=== PATIENT | female | born 1950 | race Caucasian/White ===

== ENCOUNTER → 2016-07-26 | Outpatient (CLI) | payer MEDICARE, OTHER ==
--- NOTE | 2016-07-27 08:40 | MR ---
EXAMINATION: MRI of the left shoulder HISTORY: Fall COMPARISON: Radiographs dated 08/11/2012 TECHNIQUE: Multiplanar and multisequence images obtained of the left shoulder without contrast. FINDINGS: There is a type II acromion. Mild acromioclavicular osteoarthritic changes are noted. Smal l amount of subacromial and subdeltoid fluid is noted. There is a tiny full-thickness tear of the chinchilla praspinatus tendon anteriorly at the footplate. The infraspinatus and teres minor tendons appear int act. The long head biceps tendon is present within the bicipital groove with intact overlying subsca pularis tendon. There is mild edema within the anterior glenoid. Mild articular cartilage thinning i s noted within the glenohumeral joint. Inferior glenohumeral ligament appears indistinct however lik valdez intact. There is a trace joint effusion. IMPRESSION: 1. Tiny full-thickness tear of the supraspinatus tendon at the footplate. 2. Mild bone marrow edema within the anterior glenoid. 3. Acromioclavicular and glenohumeral osteoarthritic changes. 4. Small joint effusion.
== END ==
LOC: MW.MRI 10:50
PROVIDERS: ATTEND Family Medicine
DX: M25.512 Pain in left shoulder (principal); M75.122 Complete rotator cuff tear or rupture of left shoulder, not specified as traumatic; M19.012 Primary osteoarthritis, left shoulder; M25.412 Effusion, left shoulder; W19.XXXA Unspecified fall, initial encounter
CPT/HCPCS: 73221-26-LT; 73221-LT

== ENCOUNTER 2018-03-22 10:38 | Observation (INO) | payer MEDICARE, OTHER ==
[2018-03-22] MEDS ORDERED: Sodium Chloride 0.9% 10 ML Syringe FLUSH PRN (10:52)
[2018-03-22] MEDS ORDERED: Ondansetron 4 MG/2 ML SDV IVPUSH ONE (10:52)
[2018-03-22] MEDS ORDERED: Sodium Chloride 0.9% 1,000 ML IV ONE (10:52)
[2018-03-22] MEDS ORDERED: Sodium Chloride 0.9% 2.5 ML Syringe FLUSH PRN (10:52)
--- NOTE | 2018-03-22 11:00 | EDM.PDOC ---
ED HPI GENERAL MEDICAL PROBLEM - General Chief Complaint: Gastrointestinal Problem Stated Complaint: VOMITING, NOT FEELING WELL Time Seen by Provider: 03/22/18 10:38 Source of Information: Reports: Patient History Limitations: Reports: No Limitations - History of Present Illness INITIAL COMMENTS - FREE TEXT/NARRATIVE: History of present illness: []Patient has breast cancer in both breasts started chemotherapy on March 13. She started having vomiting and diarrhea on March 18 approximately 4-5 episodes of emesis per day and greater than 10 episodes of diarrhea per day. She states this morning her stool was black and tarry which is new, so she called her physician who told her to come to the ER right away. She complains of abdominal pain in her right upper quadrant. Patient denies any fevers, chills , cough or chest pain. Patient denies taking any Pepto-Bismol Review of systems: As per history of present illness and below otherwise all systems reviewed and negative. Past medical history: As per history of present illness and as reviewed below otherwise noncontributory. Surgical history: As per history of present illness and as reviewed below otherwise noncontributory. Social history: No reported history of drug or alcohol abuse. Family history: As per history of present illness and as reviewed below otherwise noncontributory. Physical exam: General: Well developed, well nourished in NAD HEENT: Atraumatic, normocephalic, pupils reactive, negative for conjunctival pallor or scleral icterus, mucous membranes moist, throat clear, neck supple, nontender, trachea midline. Lungs: Clear to auscultation, breath sounds equal bilaterally, chest nontender. Heart: S1S2, regular, negative for clicks, rubs, or JVD. Abdomen: NABS, Soft, nondistended, tender in right upper quadrant with voluntary rebound, no guarding. Negative for masses or hepatosplenomegaly. Negative for costovertebral tenderness. Pelvis: Stable nontender. Genitourinary: Deferred. Rectal: guaiac positive Extremities: Atraumatic, negative for cords or calf pain. Neurovascular unremarkable. Neuro: Awake, alert, oriented. Cranial nerves II through XII unremarkable. Cerebellum unremarkable. Motor and sensory unremarkable throughout. Exam nonfocal. Skin:warm and dry Diagnostics: Chemistry, CBC, type and screen, lipase Therapeutics: IV fluids, Zofran ED Course: Improved with hydration. 12:41-consulted Dr. Fernando from [facility] 13:00-consulted [facility] Dr. Peter, hospitalist he recommended admitting patient here for observation to repeat chemistries after hydration and if for any ongoing anoxic stools.- Impression: Dehydration, vomiting diarrhea, breast cancer, melanotic stool Prescriptions: None Plan: Admit for observation, hydration Definitive disposition and diagnosis as appropriate pending reevaluation and review of above. RUQ Pain Score (Numeric/FACES): 2 - Related Data Allergies Allergy/AdvReac Type Severity Reaction Status Date / Time No Known Allergies Allergy Verified 03/22/18 10:52 Home Meds: Home Meds Albuterol Sulfate [Proair Hfa] 1 puff INH ASDIRECTED 03/22/18 [History] Fluticasone/Salmeterol [Advair 100-50] 1 puff INH DAILY 03/22/18 [History] Pantoprazole [ProTONIX] 40 mg PO DAILY 03/22/18 [History] Polyethylene Glycol 3350 [MiraLAX] 1 cap PO ACBREAKFAST PRN 03/22/18 [History] Ranitidine HCl [Ranitidine] 300 mg PO ASDIRECTED PRN 03/22/18 [History] Past Medical History HEENT History: Reports: Impaired Vision, Other (See Below) Other HEENT History: wears glasses Cardiovascular History: Reports: None Respiratory History: Reports: Asthma Gastrointestinal History: Reports: None Genitourinary History: Reports: None HOSPITAL CLINIC ASSISTANT History: Reports: None Musculoskeletal History: Reports: None Neurological History: Reports: None Psychiatric History: Reports: None Endocrine/Metabolic History: Reports: None Hematologic History: Reports: None Immunologic History: Reports: None Oncologic (Cancer) History: Reports: Breast Dermatologic History: Reports: None - Past Surgical History Head Surgeries/Procedures: Reports: None HEENT Surgical History: Reports: None Cardiovascular Surgical History: Reports: None Respiratory Surgical History: Reports: None GI Surgical History: Reports: None Female Surgical History: Reports: None Endocrine Surgical History: Reports: None Neurological Surgical History: Reports: None Musculoskeletal Surgical History: Reports: None Oncologic Surgical History: Reports: None Dermatological Surgical History: Reports: None Social & Family History - Family History Family Medical History: Noncontributory - Tobacco Use Smoking Status *Q: Former Smoker Used Tobacco, but Quit: Yes Month/Year Tobacco Last Used: 40 years - Caffeine Use Caffeine Use: Reports: Coffee - Recreational Drug Use Recreational Drug Use: No ED ROS GENERAL - Review of Systems Review Of Systems: ROS reveals no pertinent complaints other than HPI. ED EXAM, GI/ABD - Physical Exam Exam: See Below (See history of present illness) Course - Vital Signs Last Recorded V/S: Last Vital Signs Temp 97.7 F 03/22/18 15:51 Pulse 94 03/22/18 15:51 Resp 16 03/22/18 15:51 BP 121/62 03/22/18 15:51 Pulse Ox 98 03/22/18 15:51 - Orders/Labs/Meds Orders: Active Orders 24 hr Category Date Time Status CULTURE BLOOD [BC] Stat Lab 03/22/18 11:21 Received CULTURE BLOOD [BC] Stat Lab 03/22/18 11:38 Received Sodium Chloride 0.9% [Saline Flush] Med 03/22/18 10:52 Active 10 ml FLUSH ASDIRECTED PRN Sodium Chloride 0.9% [Saline Flush] Med 03/22/18 10:52 Active 2.5 ml FLUSH ASDIRECTED PRN Blood Culture x2 Reflex Set [OM.PC] Stat Oth 03/22/18 11:55 Ordered Saline Lock Insert [OM.PC] Stat Oth 03/22/18 10:51 Ordered Medication Orders Calcium Carbonate/Glycine (Tums) 500 mg PO Q2HR PRN PRN Reason: Indigestion Sodium Chloride (Normal Saline) 1,000 mls @ 125 mls/hr IV ASDIRECTED LANI Sodium Chloride (Saline Flush) 10 ml FLUSH ASDIRECTED PRN PRN Reason: Keep Vein Open Last Admin: 03/22/18 11:25 Dose: 10 ml Sodium Chloride (Saline Flush) 2.5 ml FLUSH ASDIRECTED PRN PRN Reason: Keep Vein Open Last Admin: 03/22/18 11:26 Dose: 2.5 ml Labs: Laboratory Tests 03/22/18 03/22/18 03/22/18 Range/Units 11:27 11:27 11:27 WBC 36.61 H (4.0-11.0) K/uL RBC 4.74 (4.30-5.90) M/uL Hgb 13.1 (12.0-16.0) g/dL Hct 39.9 (36.0-46.0) % MCV 84.2 (80.0-98.0) fL MCH 27.6 (27.0-32.0) pg MCHC 32.8 (31.0-37.0) g/dL RDW Std Deviation 47.6 (28.0-62.0) fl RDW Coeff of Jermaine 16 H (11.0-15.0) % Plt Count 228 (150-400) K/uL MPV 10.60 (7.40-12.00) fL Add Manual Diff YES Neutrophils % (Manual) 86 H (48.0-80.0) % Band Neutrophils % 4 % Lymphocytes % (Manual) 6 L (16.0-40.0) % Monocytes % (Manual) 4 (0.0-15.0) % Nucleated RBC % 0.0 /100WBC Absolute Seg Neuts 31.5 H (1.4-5.7) Band Neutrophils # 1.5 Lymphocytes # (Manual) 2.2 (0.6-2.4) Monocytes # (Manual) 1.5 H (0.0-0.8) Nucleated RBCs # 0 K/uL Sodium 137 (136-145) mmol/L Potassium 3.7 (3.5-5.1) mmol/L Chloride 101 (98-107) mmol/L Carbon Dioxide 24.2 (21.0-32.0) mmol/L BUN 26 H (7.0-18.0) mg/dL Creatinine 1.5 H (0.6-1.0) mg/dL Est Cr Clr Drug Dosing 30.57 mL/min Estimated GFR (MDRD) 34.4 ml/min Glucose 114 H (74-106) mg/dL Calcium 9.7 (8.5-10.1) mg/dL Total Bilirubin 0.3 (0.2-1.0) mg/dL AST 18 (15-37) IU/L ALT 34 (14-63) IU/L Alkaline Phosphatase 167 H (46-116) U/L Total Protein 7.3 (6.4-8.2) g/dL Albumin 3.5 (3.4-5.0) g/dL Globulin 3.8 (2.6-4.0) g/dL Albumin/Globulin Ratio 0.9 (0.9-1.6) Lipase 112 (73-393) U/L Blood Type A NEGATIVE Antibody Screen NEGATIVE Meds: Medications Generic Name Dose Route Start Last Admin Trade Name Freq PRN Reason Stop Dose Admin Calcium Carbonate/Glycine 500 mg 03/22/18 15:51 Tums PO Q2HR PRN Indigestion Sodium Chloride 1,000 mls @ 125 mls/hr 03/22/18 16:15 Normal Saline IV ASDIRECTED LANI Sodium Chloride 10 ml 03/22/18 10:52 03/22/18 11:25 Saline Flush FLUSH 10 ml ASDIRECTED PRN Administration Keep Vein Open Sodium Chloride 2.5 ml 03/22/18 10:52 03/22/18 11:26 Saline Flush FLUSH 2.5 ml ASDIRECTED PRN Administration Keep Vein Open Discontinued Medications Generic Name Dose Route Start Last Admin Trade Name Freq PRN Reason Stop Dose Admin Sodium Chloride 1,000 mls @ 999 mls/hr 03/22/18 10:52 03/22/18 11:26 Normal Saline IV 03/22/18 11:52 999 mls/hr .Bolus ONE Administration Ondansetron HCl 4 mg 03/22/18 10:52 03/22/18 11:25 Zofran IVPUSH 03/22/18 10:53 4 mg ONETIME ONE Administration Departure - Departure Time of Disposition: 13:45 Disposition: Refer to Observation Condition: Good Clinical Impression: Dehydration, Melanotic stools - Discharge Information *PRESCRIPTION DRUG MONITORING PROGRAM REVIEWED*: No *COPY OF PRESCRIPTION DRUG MONITORING REPORT IN PATIENT MOR: No - My Orders Last 24 Hours: My Active Orders 03/22/18 10:51 Saline Lock Insert [OM.PC] Stat 03/22/18 10:52 Sodium Chloride 0.9% [Saline Flush] 10 ml FLUSH ASDIRECTED PRN Sodium Chloride 0.9% [Saline Flush] 2.5 ml FLUSH ASDIRECTED PRN 03/22/18 11:21 CULTURE BLOOD [BC] Stat 03/22/18 11:38 CULTURE BLOOD [BC] Stat 03/22/18 11:55 Blood Culture x2 Reflex Set [OM.PC] Stat - Assessment/Plan Last 24 Hours: My Active Orders 03/22/18 10:51 Saline Lock Insert [OM.PC] Stat 03/22/18 10:52 Sodium Chloride 0.9% [Saline Flush] 10 ml FLUSH ASDIRECTED PRN Sodium Chloride 0.9% [Saline Flush] 2.5 ml FLUSH ASDIRECTED PRN 03/22/18 11:21 CULTURE BLOOD [BC] Stat 03/22/18 11:38 CULTURE BLOOD [BC] Stat 03/22/18 11:55 Blood Culture x2 Reflex Set [OM.PC] Stat
[2018-03-22] MEDS ORDERED: Calcium Carbonate 500 MG Tab.Chew PO PRN (15:51)
[2018-03-22] MEDS: Sodium Chloride 0.9% 1,000 ML IV SCH (16:32)
[2018-03-22] MEDS ORDERED: Albuterol 6.7 GM Inhaler INH SCH (17:45)
[2018-03-22] MEDS ORDERED: Ondansetron 4 MG/2 ML SDV IVPUSH PRN (17:57)
--- NOTE | 2018-03-22 18:05 | PCM.HP ---
H&P History of Present Illness - General Date of Service: 03/22/18 Admit Problem/Dx: Admission Diagnosis/Problem Admission Diagnosis/Problem Dehydration - History of Present Illness Initial Comments - Free Text/Narative: 67 yo female with pmh of breast cancer recently had first infusion of chemotherapy with dexamethason with plans on bilateral mastectomy following chemotherapy. She presents with four day history of gas pains and diarrhiea. Today she reported her stools were darker. She denies any fevers. She does report a history of stomach ulcers. RUQ Pain Score (Numeric/FACES): 2 - Related Data Allergies/Adverse Reactions: Allergies Allergy/AdvReac Type Severity Reaction Status Date / Time No Known Allergies Allergy Verified 03/22/18 10:52 Home Medications: Home Meds Albuterol Sulfate [Proair Hfa] 1 puff INH ASDIRECTED 03/22/18 [History] Fluticasone/Salmeterol [Advair 100-50] 1 puff INH DAILY 03/22/18 [History] Pantoprazole [ProTONIX] 40 mg PO DAILY 03/22/18 [History] Polyethylene Glycol 3350 [MiraLAX] 1 cap PO ACBREAKFAST PRN 03/22/18 [History] Ranitidine HCl [Ranitidine] 300 mg PO ASDIRECTED PRN 03/22/18 [History] Past Medical History HEENT History: Reports: Impaired Vision, Other (See Below) Other HEENT History: wears glasses Cardiovascular History: Reports: None Respiratory History: Reports: Asthma Gastrointestinal History: Reports: None Genitourinary History: Reports: None PURCHASING INTERN History: Reports: None Musculoskeletal History: Reports: None Neurological History: Reports: None Psychiatric History: Reports: None Endocrine/Metabolic History: Reports: None Hematologic History: Reports: None Immunologic History: Reports: None Oncologic (Cancer) History: Reports: Breast Other Oncologic History: Mar 13, 2018 first chemo taken. Dermatologic History: Reports: None - Infectious Disease History Infectious Disease History: Reports: Chicken Pox, Measles - Past Surgical History Head Surgeries/Procedures: Reports: None HEENT Surgical History: Reports: None Cardiovascular Surgical History: Reports: None Respiratory Surgical History: Reports: None GI Surgical History: Reports: None Female Surgical History: Reports: None Endocrine Surgical History: Reports: None Neurological Surgical History: Reports: None Musculoskeletal Surgical History: Reports: None Oncologic Surgical History: Reports: None Dermatological Surgical History: Reports: None Social & Family History - Family History Family Medical History: Noncontributory - Tobacco Use Smoking Status *Q: Former Smoker Used Tobacco, but Quit: Yes Month/Year Tobacco Last Used: 40 years Second Hand Smoke Exposure: No - Caffeine Use Caffeine Use: Reports: Coffee - Recreational Drug Use Recreational Drug Use: No H&P Review of Systems - Review of Systems: Review Of Systems: ROS reveals no pertinent complaints other than HPI. Exam - Exam Exam: See Below - Vital Signs Vital Signs: Last Vital Signs Temp 36.5 C 03/22/18 15:51 Pulse 94 03/22/18 15:51 Resp 16 03/22/18 15:51 BP 121/62 03/22/18 15:51 Pulse Ox 98 03/22/18 15:51 Weight: 78.67 kg - Exam General: Alert, Oriented Neck: Supple, Trachea Midline Lungs: Clear to Auscultation, Normal Respiratory Effort Cardiovascular: Regular Rate, Regular Rhythm GI/Abdominal Exam: Soft, Non-Tender Extremities: Non-Tender, No Pedal Edema Skin: Warm, Dry, Intact Neurological: Cranial Nerves Intact - Patient Data Lab Results Last 24 hrs: Laboratory Results - last 24 hr 03/22/18 03/22/18 03/22/18 Range/Units 11:27 11:27 11:27 WBC 36.61 H (4.0-11.0) K/uL RBC 4.74 (4.30-5.90) M/uL Hgb 13.1 (12.0-16.0) g/dL Hct 39.9 (36.0-46.0) % MCV 84.2 (80.0-98.0) fL MCH 27.6 (27.0-32.0) pg MCHC 32.8 (31.0-37.0) g/dL RDW Std Deviation 47.6 (28.0-62.0) fl RDW Coeff of Jermaine 16 H (11.0-15.0) % Plt Count 228 (150-400) K/uL MPV 10.60 (7.40-12.00) fL Add Manual Diff YES Neutrophils % (Manual) 86 H (48.0-80.0) % Band Neutrophils % 4 % Lymphocytes % (Manual) 6 L (16.0-40.0) % Monocytes % (Manual) 4 (0.0-15.0) % Nucleated RBC % 0.0 /100WBC Absolute Seg Neuts 31.5 H (1.4-5.7) Band Neutrophils # 1.5 Lymphocytes # (Manual) 2.2 (0.6-2.4) Monocytes # (Manual) 1.5 H (0.0-0.8) Nucleated RBCs # 0 K/uL Sodium 137 (136-145) mmol/L Potassium 3.7 (3.5-5.1) mmol/L Chloride 101 (98-107) mmol/L Carbon Dioxide 24.2 (21.0-32.0) mmol/L BUN 26 H (7.0-18.0) mg/dL Creatinine 1.5 H (0.6-1.0) mg/dL Est Cr Clr Drug Dosing 30.57 mL/min Estimated GFR (MDRD) 34.4 ml/min Glucose 114 H (74-106) mg/dL Calcium 9.7 (8.5-10.1) mg/dL Total Bilirubin 0.3 (0.2-1.0) mg/dL AST 18 (15-37) IU/L ALT 34 (14-63) IU/L Alkaline Phosphatase 167 H (46-116) U/L Total Protein 7.3 (6.4-8.2) g/dL Albumin 3.5 (3.4-5.0) g/dL Globulin 3.8 (2.6-4.0) g/dL Albumin/Globulin Ratio 0.9 (0.9-1.6) Lipase 112 (73-393) U/L Blood Type A NEGATIVE Antibody Screen NEGATIVE Result Diagrams: 03/23/18 06:10 03/23/18 06:10 Problem List Initiated/Reviewed/Updated: Yes Orders Last 24hrs: Active Orders 24 hr Category Date Time Status Patient Status [ADT] Stat ADT 03/22/18 13:20 Active Oxygen Therapy [RC] PRN Care 03/22/18 17:57 Ordered Up ad Dasha [RC] ASDIRECTED Care 03/22/18 17:57 Ordered VTE/DVT Education [RC] PER UNIT ROUTINE Care 03/22/18 17:57 Ordered Vital Signs [RC] Q4H Care 03/22/18 17:57 Ordered Regular Diet [DIET] Diet 03/22/18 Dinner Active BASIC METABOLIC PANEL,BMP [CHEM] AM Lab 03/23/18 05:11 Ordered CBC WITH AUTO DIFF [HEME] AM Lab 03/23/18 05:11 Ordered CDIFF TOX A+B [OP] Routine Lab 03/22/18 17:56 Ordered CULTURE BLOOD [BC] Stat Lab 03/22/18 11:21 Received CULTURE BLOOD [BC] Stat Lab 03/22/18 11:38 Received CULTURE STOOL + CAMPY+SHIGATOX [RM] Routine Lab 03/22/18 17:56 Ordered CULTURE URINE [RM] Routine Lab 03/22/18 17:56 Ordered UA W/O MICROSCOPIC [URIN] Routine Lab 03/22/18 17:56 Ordered Albuterol [Proventil HFA] Med 03/22/18 17:45 Ordered DOSE gm INH ASDIRECTED Calcium Carbonate [Tums] Med 03/22/18 15:51 Active 500 mg PO Q2HR PRN Fluticasone/Salmeterol [Advair Diskus 100-50] Med 03/23/18 09:00 Ordered 1 puff INH DAILY Ondansetron [Zofran] Med 03/22/18 17:57 Ordered 4 mg IVPUSH Q4H PRN Pantoprazole [ProTONIX IV] Med 03/22/18 17:45 Ordered 40 mg IVPUSH Q12H Sodium Chloride 0.9% [Normal Saline] 1,000 ml Med 03/22/18 16:15 Active IV ASDIRECTED Sodium Chloride 0.9% [Saline Flush] Med 03/22/18 10:52 Active 10 ml FLUSH ASDIRECTED PRN Sodium Chloride 0.9% [Saline Flush] Med 03/22/18 10:52 Active 2.5 ml FLUSH ASDIRECTED PRN Blood Culture x2 Reflex Set [OM.PC] Stat Oth 03/22/18 11:55 Ordered Saline Lock Insert [OM.PC] Stat Oth 03/22/18 10:51 Ordered Sequential Compression Device [OM.PC] Per Unit Routine Oth 03/22/18 17:58 Ordered Resuscitation Status Routine Resus Stat 03/22/18 17:57 Ordered Medication Orders Albuterol (Proventil Hfa) gm INH ASDIRECTED ALNI Calcium Carbonate/Glycine (Tums) 500 mg PO Q2HR PRN PRN Reason: Indigestion Last Admin: 03/22/18 16:31 Dose: 500 mg Sodium Chloride (Normal Saline) 1,000 mls @ 125 mls/hr IV ASDIRECTED LANI Last Admin: 03/22/18 16:32 Dose: 125 mls/hr Pantoprazole Sodium (Protonix Iv) 40 mg IVPUSH Q12H LANI Fluticasone/Salmeterol (Advair Diskus 100-50) 1 puff INH DAILY LANI Sodium Chloride (Saline Flush) 10 ml FLUSH ASDIRECTED PRN PRN Reason: Keep Vein Open Last Admin: 03/22/18 11:25 Dose: 10 ml Sodium Chloride (Saline Flush) 2.5 ml FLUSH ASDIRECTED PRN PRN Reason: Keep Vein Open Last Admin: 03/22/18 11:26 Dose: 2.5 ml Assessment/Plan Comment:: 67 yo female admitted with gastroenteritis that is likely due to chemotherapy. Her leukocytosis is likely due to her chemotherapy as well. No signs of infection. We will send stool and urine for culture. Will place on protonix for possible GI bleed and hold NSAIDs.
[2018-03-22] MEDS: Pantoprazole 40 MG Vial IVPUSH SCH (19:53)
[2018-03-23] MEDS: Sodium Chloride 0.9% 1,000 ML IV SCH ×4 (00:12→23:37)
[2018-03-23] MEDS: Pantoprazole 40 MG Vial IVPUSH SCH ×2 (06:49→18:09)
--- NOTE | 2018-03-23 08:20 | PCM.PN ---
- General Info Date of Service: 03/23/18 - Review of Systems Systems Review Comment:: had three mushy stools last night - Patient Data Vitals - Most Recent: Last Vital Signs Temp 36.2 C 03/23/18 03:00 Pulse 71 03/23/18 03:00 Resp 17 03/23/18 03:00 BP 134/60 03/23/18 03:00 Pulse Ox 98 03/23/18 03:00 Weight - Most Recent: 78.67 kg I&O - Last 24 Hours: Intake & Output 03/22/18 03/23/18 03/23/18 22:59 06:59 14:59 Intake Total 356 1625 Output Total 300 Balance 356 1325 Lab Results Last 24 Hours: Laboratory Results - last 24 hr 03/22/18 03/22/18 03/22/18 Range/Units 11:27 11:27 11:27 WBC 36.61 H (4.0-11.0) K/uL RBC 4.74 (4.30-5.90) M/uL Hgb 13.1 (12.0-16.0) g/dL Hct 39.9 (36.0-46.0) % MCV 84.2 (80.0-98.0) fL MCH 27.6 (27.0-32.0) pg MCHC 32.8 (31.0-37.0) g/dL RDW Std Deviation 47.6 (28.0-62.0) fl RDW Coeff of Jermaine 16 H (11.0-15.0) % Plt Count 228 (150-400) K/uL MPV 10.60 (7.40-12.00) fL Add Manual Diff YES Neutrophils % (Manual) 86 H (48.0-80.0) % Band Neutrophils % 4 % Lymphocytes % (Manual) 6 L (16.0-40.0) % Monocytes % (Manual) 4 (0.0-15.0) % Eosinophils % (Manual) (0.0-7.0) % Nucleated RBC % 0.0 /100WBC Absolute Seg Neuts 31.5 H (1.4-5.7) Band Neutrophils # 1.5 Lymphocytes # (Manual) 2.2 (0.6-2.4) Monocytes # (Manual) 1.5 H (0.0-0.8) Eosinophils # (Manual) (0.0-0.7) Nucleated RBCs # 0 K/uL Sodium 137 (136-145) mmol/L Potassium 3.7 (3.5-5.1) mmol/L Chloride 101 (98-107) mmol/L Carbon Dioxide 24.2 (21.0-32.0) mmol/L BUN 26 H (7.0-18.0) mg/dL Creatinine 1.5 H (0.6-1.0) mg/dL Est Cr Clr Drug Dosing 30.57 mL/min Estimated GFR (MDRD) 34.4 ml/min Glucose 114 H (74-106) mg/dL Calcium 9.7 (8.5-10.1) mg/dL Total Bilirubin 0.3 (0.2-1.0) mg/dL AST 18 (15-37) IU/L ALT 34 (14-63) IU/L Alkaline Phosphatase 167 H (46-116) U/L Total Protein 7.3 (6.4-8.2) g/dL Albumin 3.5 (3.4-5.0) g/dL Globulin 3.8 (2.6-4.0) g/dL Albumin/Globulin Ratio 0.9 (0.9-1.6) Lipase 112 (73-393) U/L Urine Color Urine Appearance Urine pH (5.0-8.0) Ur Specific [place] (1.001-1.035) Urine Protein (NEGATIVE) mg/dL Urine Glucose (UA) (NEGATIVE) mg/dL Urine Ketones (NEGATIVE) mg/dL Urine Occult Blood (NEGATIVE) Urine Nitrite (NEGATIVE) Urine Bilirubin (NEGATIVE) Urine Urobilinogen (<2.0) EU/dL Ur Leukocyte Esterase (NEGATIVE) Blood Type A NEGATIVE Antibody Screen NEGATIVE 03/22/18 03/23/18 03/23/18 Range/Units 17:20 06:10 06:10 WBC 27.53 H (4.0-11.0) K/uL RBC 3.90 L (4.30-5.90) M/uL Hgb 10.7 L (12.0-16.0) g/dL Hct 33.1 L (36.0-46.0) % MCV 84.9 (80.0-98.0) fL MCH 27.4 (27.0-32.0) pg MCHC 32.3 (31.0-37.0) g/dL RDW Std Deviation 48.5 (28.0-62.0) fl RDW Coeff of Jermaine 16 H (11.0-15.0) % Plt Count 175 (150-400) K/uL MPV 10.10 (7.40-12.00) fL Add Manual Diff YES Neutrophils % (Manual) 80 (48.0-80.0) % Band Neutrophils % 7 % Lymphocytes % (Manual) 9 L (16.0-40.0) % Monocytes % (Manual) 3 (0.0-15.0) % Eosinophils % (Manual) 1 (0.0-7.0) % Nucleated RBC % 0.0 /100WBC Absolute Seg Neuts 22.0 H (1.4-5.7) Band Neutrophils # 1.9 Lymphocytes # (Manual) 2.5 H (0.6-2.4) Monocytes # (Manual) 0.8 (0.0-0.8) Eosinophils # (Manual) 0.3 (0.0-0.7) Nucleated RBCs # 0 K/uL Sodium 142 (136-145) mmol/L Potassium 3.7 (3.5-5.1) mmol/L Chloride 109 H (98-107) mmol/L Carbon Dioxide 25.8 (21.0-32.0) mmol/L BUN 17 (7.0-18.0) mg/dL Creatinine 1.2 H (0.6-1.0) mg/dL Est Cr Clr Drug Dosing 38.21 mL/min Estimated GFR (MDRD) 44.5 ml/min Glucose 105 (74-106) mg/dL Calcium 8.8 (8.5-10.1) mg/dL Total Bilirubin (0.2-1.0) mg/dL AST (15-37) IU/L ALT (14-63) IU/L Alkaline Phosphatase (46-116) U/L Total Protein (6.4-8.2) g/dL Albumin (3.4-5.0) g/dL Globulin (2.6-4.0) g/dL Albumin/Globulin Ratio (0.9-1.6) Lipase (73-393) U/L Urine Color YELLOW Urine Appearance HAZY Urine pH 5.5 (5.0-8.0) Ur Specific [place] 1.015 (1.001-1.035) Urine Protein NEGATIVE (NEGATIVE) mg/dL Urine Glucose (UA) NEGATIVE (NEGATIVE) mg/dL Urine Ketones NEGATIVE (NEGATIVE) mg/dL Urine Occult Blood MODERATE H (NEGATIVE) Urine Nitrite NEGATIVE (NEGATIVE) Urine Bilirubin NEGATIVE (NEGATIVE) Urine Urobilinogen 0.2 (<2.0) EU/dL Ur Leukocyte Esterase TRACE H (NEGATIVE) Blood Type Antibody Screen Vasile Results Last 24 Hours: Microbiology 03/22/18 17:20 Clostridium difficile Toxin A & B - Final Stool / Feces Negative for C.Diff Toxin/AG 03/22/18 17:20 Campylobacter Antigen Assay - Final Stool / Feces NEGATIVE CAMPYLOBACTER AG 03/22/18 17:20 Stool Occult Blood (VASILE) - Final Stool / Feces POSITIVE OCCULT BLOOD Med Orders - Current: Current Medications Calcium Carbonate/Glycine (Tums) 500 mg PO Q2HR PRN PRN Reason: Indigestion Last Admin: 03/22/18 16:31 Dose: 500 mg Sodium Chloride (Normal Saline) 1,000 mls @ 125 mls/hr IV ASDIRECTED [facility] Last Admin: 03/23/18 06:51 Dose: 125 mls/hr Ondansetron HCl (Zofran) 4 mg IVPUSH Q4H PRN PRN Reason: Nausea Last Admin: 03/22/18 19:51 Dose: 4 mg Pantoprazole Sodium (Protonix Iv) 40 mg IVPUSH Q12H [facility] Last Admin: 03/23/18 06:49 Dose: 40 mg Fluticasone/Salmeterol (Advair Diskus 100-50) 1 puff INH DAILY [facility] Sodium Chloride (Saline Flush) 10 ml FLUSH ASDIRECTED PRN PRN Reason: Keep Vein Open Last Admin: 03/22/18 11:25 Dose: 10 ml Sodium Chloride (Saline Flush) 2.5 ml FLUSH ASDIRECTED PRN PRN Reason: Keep Vein Open Last Admin: 03/22/18 11:26 Dose: 2.5 ml Discontinued Medications Albuterol (Proventil Hfa) gm INH ASDIRECTED [facility] Sodium Chloride (Normal Saline) 1,000 mls @ 999 mls/hr IV .Bolus ONE Stop: 03/22/18 11:52 Last Admin: 03/22/18 11:26 Dose: 999 mls/hr Ondansetron HCl (Zofran) 4 mg IVPUSH ONETIME ONE Stop: 03/22/18 10:53 Last Admin: 03/22/18 11:25 Dose: 4 mg - Exam General: Alert, Oriented Lungs: Clear to Auscultation, Normal Respiratory Effort Cardiovascular: Regular Rate, Regular Rhythm GI/Abdominal Exam: Soft, Non-Tender Extremities: Non-Tender, No Pedal Edema Skin: Warm, Dry, Intact - Problem List Review Problem List Initiated/Reviewed/Updated: Yes - My Orders Last 24 Hours: My Active Orders 03/22/18 15:51 Calcium Carbonate [Tums] 500 mg PO Q2HR PRN 03/22/18 16:15 Sodium Chloride 0.9% [Normal Saline] 1,000 ml IV ASDIRECTED 03/22/18 17:20 CULTURE STOOL + CAMPY+SHIGATOX [RM] Routine CULTURE URINE [RM] Routine 03/22/18 17:57 Oxygen Therapy [RC] PRN Up ad Dasha [RC] ASDIRECTED VTE/DVT Education [RC] PER UNIT ROUTINE Vital Signs [RC] Q4H Ondansetron [Zofran] 4 mg IVPUSH Q4H PRN Resuscitation Status Routine 03/22/18 17:58 Sequential Compression Device [OM.PC] Per Unit Routine 03/22/18 18:00 Pantoprazole [ProTONIX IV] 40 mg IVPUSH Q12H 03/22/18 18:03 Hemoccult [Fecal Occult Blood Collection] [RC] ASDIRECTED 03/22/18 Dinner Regular Diet [DIET] 03/23/18 09:00 Fluticasone/Salmeterol [Advair Diskus 100-50] 1 puff INH DAILY - Plan Plan:: 67 yo female admitted with gastroenteritis that is likely due to chemotherapy. Continue IV fluids and protonix. Will monitor for another night.
[2018-03-23] MEDS: Fluticasone/Salmeterol 100-50 MCG Inhalation Powder 14/Diskus INH SCH ×2 (10:14→10:24)
[2018-03-24] MEDS: Pantoprazole 40 MG Vial IVPUSH SCH (05:32)
[2018-03-24] MEDS: Sodium Chloride 0.9% 1,000 ML IV SCH (07:36)
[2018-03-24] MEDS: Fluticasone/Salmeterol 100-50 MCG Inhalation Powder 14/Diskus INH SCH (08:13)
[2018-03-24] MEDS ORDERED: cefTRIAXone 1 GM in Sodium Chloride 0.9% 50 ML IV SCH (08:15)
--- NOTE | 2018-03-24 09:19 | PCM.DCSUM1 ---
Discharge Summary - Hospital Course Brief History: 67 yo female with pmh of breast cancer recently had first infusion of chemotherapy with dexamethasone with plans of bilateral mastectomy following chemotherapy. She presents with four day history of gas pains and diarrhiea. Today she reported her stools were darker. She denies any fevers. She does report a history of stomach ulcers. Diagnosis: Stroke: No - Discharge Data Discharge Date: 03/24/18 Discharge Disposition: Home, Self-Care 01 Condition: Good - Patient Instructions Diet: GI Soft/Low Residue/Low Fiber (BRAT diet) Activity: As Tolerated Showering/Bathing: July Shower Notify Provider of: Fever, Increased Pain, Swelling and Redness, Drainage, Nausea and/or Vomiting - Discharge Plan *PRESCRIPTION DRUG MONITORING PROGRAM REVIEWED*: No *COPY OF PRESCRIPTION DRUG MONITORING REPORT IN PATIENT MOR: No Prescriptions/Med Rec: cephALEXin [Keflex] 500 mg PO Q12H #8 cap Home Medications: Home Meds Albuterol Sulfate [Proair Hfa] 1 puff INH ASDIRECTED 03/22/18 [History] Fluticasone/Salmeterol [Advair 100-50] 1 puff INH DAILY 03/22/18 [History] Pantoprazole [ProTONIX] 40 mg PO DAILY 03/22/18 [History] Polyethylene Glycol 3350 [MiraLAX] 1 cap PO ACBREAKFAST PRN 03/22/18 [History] Ranitidine HCl [Ranitidine] 300 mg PO ASDIRECTED PRN 03/22/18 [History] cephALEXin [Keflex] 500 mg PO Q12H #8 cap 03/24/18 [Rx] Patient Handouts: Dehydration, Adult, [id number], Cephalexin tablets or capsules Referrals: [facility] [Outside] Aissatou Colón NP [Primary Care Provider] - Eldon Cardona MD [Ordering Only Provider] - 03/31/18 10:30 am (The appointment was madde with Dr. Cardona, due to Eldon being too far out with her appointments. ) - Discharge Summary/Plan Comment DC Time >30 min.: No Discharge Summary/Plan Comment: Discharge Diagnoses: Gastroenteritis UTI- E coli grimaldo sensitive Breast Ca Chemotherapy Jayna was admitted due to reports of darker stools. Stool studies revealed negative cultures, but were occult positive. Protonix and Zantac continued. She reports stools are better, still a little loose but have improved. Not black in appearance and no chito blood. She is eager to be discharged home and is feeling better today. Leukocytosis likely related to chemoptherapy and Dexamethasone. BC negative. She is to follow up with PCP this week to insure she continues to improve. UTI was noted on UC, started on Keflex 500 mg Q12hr for 4 more days. She is to return to ED or clinic if concerns should arise. - General Info Date of Service: 03/24/18 Admission Dx/Problem (Free Text: Admission Diagnosis/Problem Admission Diagnosis/Problem Dehydration Subjective Update: Feeling good this morning, no abdominal pain. Tolerating diet. Stools have improved, a little loose still but not black or bloody in appearance. NO chest pain or SOB. Functional Status: Reports: Pain Controlled, Tolerating Diet, Ambulating, Urinating - Review of Systems General: Reports: No Symptoms. Denies: Weakness, Fatigue, Malaise HEENT: Reports: No Symptoms. Denies: Sore Throat, Visual Changes Pulmonary: Reports: No Symptoms. Denies: Shortness of Breath Cardiovascular: Reports: No Symptoms. Denies: Chest Pain Gastrointestinal: Reports: Flatus. Denies: Abdominal Pain, Decreased Appetite, Melena, Nausea, Vomiting Genitourinary: Reports: No Symptoms. Denies: Dysuria, Frequency, Burning Musculoskeletal: Reports: No Symptoms Skin: Reports: No Symptoms Neurological: Reports: No Symptoms Psychiatric: Reports: No Symptoms - Patient Data Vitals - Most Recent: Last Vital Signs Temp 97.4 F 03/24/18 07:00 Pulse 74 03/24/18 07:00 Resp 16 03/24/18 07:00 BP 139/80 03/24/18 07:00 Pulse Ox 96 03/24/18 07:00 Weight - Most Recent: 78.67 kg I&O - Last 24 hours: Intake & Output 03/23/18 03/24/18 03/24/18 22:59 06:59 14:59 Intake Total 1894 1608 1000 Output Total 950 1000 Balance 030 880 3232 MEHNAZ Results - Last 24 hrs: Microbiology 03/22/18 17:20 Stool Culture - Final Stool / Feces NO SALMONELLA, SHIGELLA,OR E.COLI O157 ISOLATED Campylobacter Antigen Assay - Final NEGATIVE CAMPYLOBACTER AG Shiga Toxin I - Final NEGATIVE FOR SHIGA TOXIN 1 Shiga Toxin II - Final NEGATIVE FOR SHIGA TOXIN 2 03/22/18 17:20 Urine Culture - Final Urine, Bladder Escherichia Coli Klebsiella Pneumoniae Normal Urogenital Margarita 03/22/18 11:38 Aerobic Blood Culture - Preliminary Blood - Venous - Lab Draw NO GROWTH AFTER 1 DAY Anaerobic Blood Culture - Preliminary NO GROWTH AFTER 1 DAY 03/22/18 11:21 Aerobic Blood Culture - Preliminary Blood - Venous NO GROWTH AFTER 1 DAY Anaerobic Blood Culture - Preliminary NO GROWTH AFTER 1 DAY Med Orders - Current: Current Medications Calcium Carbonate/Glycine (Tums) 500 mg PO Q2HR PRN PRN Reason: Indigestion Last Admin: 03/22/18 16:31 Dose: 500 mg Sodium Chloride (Normal Saline) 1,000 mls @ 125 mls/hr IV ASDIRECTED [facility] Last Admin: 03/24/18 07:36 Dose: 125 mls/hr Ceftriaxone Sodium 1 gm/ (Sodium Chloride) 50 mls @ 100 mls/hr IV Q24H [facility] Last Admin: 03/24/18 08:13 Dose: 100 mls/hr Ondansetron HCl (Zofran) 4 mg IVPUSH Q4H PRN PRN Reason: Nausea Last Admin: 03/22/18 19:51 Dose: 4 mg Pantoprazole Sodium (Protonix Iv) 40 mg IVPUSH Q12H [facility] Last Admin: 03/24/18 05:32 Dose: 40 mg Fluticasone/Salmeterol (Advair Diskus 100-50) 1 puff INH DAILY [facility] Last Admin: 03/24/18 08:13 Dose: 1 puff Sodium Chloride (Saline Flush) 10 ml FLUSH ASDIRECTED PRN PRN Reason: Keep Vein Open Last Admin: 03/22/18 11:25 Dose: 10 ml Sodium Chloride (Saline Flush) 2.5 ml FLUSH ASDIRECTED PRN PRN Reason: Keep Vein Open Last Admin: 03/22/18 11:26 Dose: 2.5 ml Discontinued Medications Albuterol (Proventil Hfa) gm INH ASDIRECTED [facility] Sodium Chloride (Normal Saline) 1,000 mls @ 999 mls/hr IV .Bolus ONE Stop: 03/22/18 11:52 Last Admin: 03/22/18 11:26 Dose: 999 mls/hr Ondansetron HCl (Zofran) 4 mg IVPUSH ONETIME ONE Stop: 03/22/18 10:53 Last Admin: 03/22/18 11:25 Dose: 4 mg - Exam General: Reports: Alert, Oriented, Cooperative, No Acute Distress Lungs: Reports: Clear to Auscultation, Normal Respiratory Effort Cardiovascular: Reports: Regular Rate, Regular Rhythm GI/Abdominal Exam: Normal Bowel Sounds, Soft, Non-Tender, No Mass Back Exam: Reports: Normal Inspection, Full Range of Motion Neurological: Reports: No New Focal Deficit Psy/Mental Status: Reports: Alert, Normal Affect, Normal Mood
== END 2018-03-24 10:15 | disposition home or self-care (01) ==
LOC: MW.ED 10:38 → MW.MS 13:20 → MW.ED 13:42
PROVIDERS: ADMIT Internal Medicine; ATTEND Internal Medicine
DX: K52.9 Noninfective gastroenteritis and colitis, unspecified (principal); D72.829 Elevated white blood cell count, unspecified; N39.0 Urinary tract infection, site not specified; B96.20 Unspecified Escherichia coli [E. coli] as the cause of diseases classified elsewhere; C50.912 Malignant neoplasm of unspecified site of left female breast; C50.911 Malignant neoplasm of unspecified site of right female breast; J45.909 Unspecified asthma, uncomplicated; Z87.891 Personal history of nicotine dependence; Z79.899 Other long term (current) drug therapy
CPT/HCPCS: 36415; 80048; 80053; 81003; 82272; 83690; 85025; 86850; 86900; 86901; 87040; 87046; 87086; 87088; 87186; 87324; 87899; 96361; 96365; 96375; 96376; 99285; A9270; C9113; G0378; J0696; J2405; J7040; J7050; 96374; 99284

== ENCOUNTER 2019-10-06 10:35 | Day surgery (SDC) | payer MEDICARE, OTHER ==
[~2019-10-06 10:35] MED LIST: Lactated Ringers 1,000 ML IV SCH; Propofol 200 MG/20 ML SDV ONE; Sodium Chloride 0.9% 10 ML SDV IV PRN; Sodium Chloride 0.9% 10 ML Syringe FLUSH PRN; Sodium Chloride 0.9% 2.5 ML Syringe FLUSH PRN
--- NOTE | 2019-10-06 10:56 | PCM.PREANE ---
Preanesthetic Assessment - Anesthesia/Transfusion/Family Hx Anesthesia History: Prior Anesthesia Without Reaction Family History of Anesthesia Reaction: No Transfusion History: Prior Transfusion Without Reaction - Review of Systems General: No Symptoms Pulmonary: No Symptoms Cardiovascular: No Symptoms Gastrointestinal: No Symptoms Neurological: No Symptoms Other: Reports: None - Physical Assessment NPO Status Date: 10/06/19 NPO Status Time: 03:30 Vital Signs: Last Vital Signs Temp 98.6 F 10/06/19 09:45 Pulse 74 10/06/19 09:45 Resp 16 10/06/19 09:45 BP 118/60 10/06/19 09:45 Pulse Ox 96 10/06/19 09:45 Height: 5 ft 4 in Weight: 66.678 kg ASA Class: 2 Mental Status: Alert & Oriented x3 Airway Class: Mallampati = 2 Dentition: Reports: Edentulous ROM/Head Extension: Full Lungs: Clear to Auscultation, Normal Respiratory Effort Cardiovascular: Regular Rate, Regular Rhythm - Allergies Allergies/Adverse Reactions: Allergies Allergy/AdvReac Type Severity Reaction Status Date / Time No Known Allergies Allergy Verified 09/30/19 12:01 - Anesthesia Plan Pre-Op Medication Ordered: None - Acknowledgements Anesthesia Type Planned: General Anesthesia Pt an Appropriate Candidate for the Planned Anesthesia: Yes Alternatives and Risks of Anesthesia Discussed w Pt/Guardian: Yes Pt/Guardian Understands and Agrees with Anesthesia Plan: Yes Additional Comments: PMH: hx breast ca, has port being used for iv access, remote hx of asthma- inactive now, skin lesions to be removed are on ant chest wall and ant upper abdomen PLAN: GA/TIVA or gas, ETT for miinimization of aerisolization during EGD PreAnesthesia Questionnaire HEENT History: Reports: Impaired Vision, Other (See Below) Other HEENT History: wears glasses, top and bottom dentures Cardiovascular History: Reports: None Respiratory History: Reports: Asthma Gastrointestinal History: Reports: GERD Genitourinary History: Reports: None BRONC BUSTER History: Musculoskeletal History: Reports: None Neurological History: Reports: None Psychiatric History: Reports: None Endocrine/Metabolic History: Reports: Osteopenia Hematologic History: Reports: Blood Transfusion(s) Immunologic History: Reports: None Oncologic (Cancer) History: Reports: Breast Dermatologic History: Reports: None - Infectious Disease History Infectious Disease History: Reports: Chicken Pox, Measles - Past Surgical History Head Surgeries/Procedures: Reports: None HEENT Surgical History: Reports: Cataract Surgery Other HEENT Surgeries/Procedures: hx eyelid bx Cardiovascular Surgical History: Reports: None Respiratory Surgical History: Reports: None GI Surgical History: Reports: Colonoscopy, EGD, Esther Fundoplication Female Surgical History: Reports: Breast Biopsy, Mastectomy Other Female Surgeries/Procedures: hx bird mastectomy Endocrine Surgical History: Reports: Other (See Below) Other Endocrine Surgeries/Procedures: excision of parotid tumor Neurological Surgical History: Reports: None Musculoskeletal Surgical History: Reports: None Oncologic Surgical History: Reports: Mastectomy Other Oncologic Surgeries/Procedures: bird mastectomy, estefany cath placement for chemo Dermatological Surgical History: Reports: None - SUBSTANCE USE Smoking Status *Q: Former Smoker Tobacco Use Within Last Twelve Months: No Recreational Drug Use History: No - HOME MEDS Home Medications: Home Meds Albuterol Sulfate [Proair Hfa] 1 - 2 puff INH ASDIRECTED PRN 03/22/18 [History] Fluticasone/Salmeterol [Advair 100-50] 1 puff INH BID PRN 03/22/18 [History] Pantoprazole [ProTONIX] 40 mg PO DAILY 03/22/18 [History] Albuterol Sulfate 1 dose NEB ASDIRECTED PRN 09/30/19 [History] [place]/D3/Mag11/Zinc/Travel Registered Nurse Pacu/Jam/Bor [Caltrate 600+D Plus Tablet] 2 tab PO DAILY 09/30/19 [History] Chlorhexidine Gluconate [Chlorhexidine Gluconate 0.12% Rinse] 1 dose SSPIT ASDIRECTED PRN 09/30/19 [History] Cholecalciferol (Vitamin D3) [Vitamin D3] 1,000 units PO DAILY 09/30/19 [History] Ferrous Sulfate [Iron] 1 tab PO DAILY 09/30/19 [History] Magnesium Oxide 2 tab PO BID 09/30/19 [History] Montelukast Sodium 10 mg PO DAILY PRN 09/30/19 [History] Olopatadine [Pataday 0.2% Ophth Soln] 1 drop EYEBOTH ASDIRECTED PRN 09/30/19 [History] Potassium Chloride 10 meq PO DAILY 09/30/19 [History] Tamoxifen Citrate 20 mg PO DAILY 09/30/19 [History] - CURRENT (IN HOUSE) MEDS Current Meds: Current Medications Lactated Ringer's (Ringers, Lactated) 1,000 mls @ 125 mls/hr IV ASDIRECTED [facility] Sodium Chloride (Saline Flush) 10 ml FLUSH ASDIRECTED PRN PRN Reason: Keep Vein Open Sodium Chloride (Saline Flush) 2.5 ml FLUSH ASDIRECTED PRN PRN Reason: Keep Vein Open Sodium Chloride (Saline Flush) 10 ml FLUSH ASDIRECTED PRN PRN Reason: Keep Vein Open Sodium Chloride (Saline Flush) 2.5 ml FLUSH ASDIRECTED PRN PRN Reason: Keep Vein Open Sodium Chloride (Normal Saline) 10 ml IV ASDIRECTED PRN PRN Reason: IV Use Discontinued Medications Propofol (Diprivan 20 Ml) Confirm Administered Dose 200 mg .ROUTE .K-MED ONE Stop: 10/06/19 07:38
[2019-10-06] MEDS ORDERED: Bupivacaine 0.5% 30 ML SDV ONE (11:30)
[2019-10-06] MEDS ORDERED: Midazolam 1 MG/ML 2 ML SDV ONE (11:33)
[2019-10-06] MEDS ORDERED: fentaNYL 100 MCG/2 ML SDV ONE (11:33)
[2019-10-06] MEDS ORDERED: Glycopyrrolate 0.2 MG/ML SDV ONE (11:34)
[2019-10-06] MEDS ORDERED: Ondansetron 4 MG/2 ML SDV ONE (11:34)
[2019-10-06] MEDS ORDERED: Lidocaine 2% 5 ML SDV ONE (11:34)
[2019-10-06] MEDS ORDERED: Sugammadex Sodium 200 MG/2 ML VIAL ONE (11:37)
[2019-10-06] MEDS ORDERED: Octyl 2-Cyanoacrylate 1 Tube ONE (11:49)
[2019-10-06] MEDS ORDERED: ceFAZolin 1 GM Vial ONE (11:54)
--- NOTE | 2019-10-06 13:03 | PCM.OPNOTE ---
- General Post-Op/Procedure Note Date of Surgery/Procedure: 10/06/19 Operative Procedure(s): Excision chest wall skin lesion excision abdominal skin lesion, Diagnostic egd and colonoscopy Findings: 7 mm x 3mm x 4mm skin lesion on epigastric area of abdomen, 1.5 x 1 x 1 cm skin lesion on chest wall on upper sternum. Paraesophageal hernia, diverticulosis. Melanosis coli. Pre Op Diagnosis: JONN, skin lesion chest wall, skin lesion abdomen Post-Op Diagnosis: Skin lesion abdomen, skin lesion chest wall, paraesophageal hernia, melanosis coli, diverticulosis Anesthesia Technique: General ET Tube Fluid Replacement, Intraop: 1,000 EBL in mLs: 2 Condition: Good
--- NOTE | 2019-10-06 13:25 | PCM.POSTAN ---
POST ANESTHESIA ASSESSMENT - MENTAL STATUS Mental Status: Alert - VITAL SIGNS Vital Signs: Last Vital Signs Temp 37 C 10/06/19 09:45 Pulse 75 10/06/19 13:15 Resp 12 10/06/19 13:15 BP 106/52 L 10/06/19 13:15 Pulse Ox 97 10/06/19 13:15 - RESPIRATORY Respiratory Status: Respiratory Rate WNL - CARDIOVASCULAR CV Status: Pulse Rate WNL - GASTROINTESTINAL GI Status: No Symptoms - POST OP HYDRATION Hydration Status: Adequate & Stable
--- NOTE | 2019-10-06 14:23 | PCM48HPAN ---
Post Anesthesia Note - EVALUATION WITHIN 48HRS OF ANESTHETIC Vital Signs in Normal Range: Yes Patient Participated in Evaluation: Yes Respiratory Function Stable: Yes Airway Patent: Yes Cardiovascular Function Stable: Yes Hydration Status Stable: Yes Pain Control Satisfactory: Yes Nausea and Vomiting Control Satisfactory: Yes Mental Status Recovered: Yes Vital Signs: Last Vital Signs Temp 98.6 F 10/06/19 09:45 Pulse 59 L 10/06/19 14:00 Resp 16 10/06/19 14:00 BP 123/57 L 10/06/19 14:00 Pulse Ox 96 10/06/19 14:00
--- NOTE | 2019-10-06 15:16 | OR ---
SURGEON: SALVADOR MENDOZA MD DATE OF PROCEDURE: 10/06/2019 PREOPERATIVE DIAGNOSES: Iron deficiency anemia, chest wall skin lesion, abdominal skin lesion. POSTOPERATIVE DIAGNOSES: 1. Abdominal skin lesion. 2. Chest wall skin lesion. 3. Paraesophageal hernia. 4. Hyperplastic gastric polyps. 5. Melanosis coli. 6. Diverticulosis of the sigmoid colon. PROCEDURES PERFORMED: 1. Excision of abdominal skin lesion. 2. Excision of chest wall skin lesion. 3. Diagnostic esophagogastroduodenoscopy and colonoscopy. ANESTHESIA: General endotracheal anesthesia. FLUIDS: 1 L of crystalloid. ESTIMATED BLOOD LOSS: 2 mL. INSTRUMENT USED: Olympus endoscope and colonoscope. EXTENT OF EXAM: To the second portion of duodenum, to the cecum. PREPARATION: Good. LIMITATIONS: None. FINDINGS: 1.5 x 1 x 1 cm chest wall skin lesion, no margins associated with case. Abdominal skin lesion, 7 mm x 3 mm x 4 mm, no margins associated with case. Paraesophageal hernia with part of the fundus in the chest. Hyperplastic gastric polyps in the body of the stomach. Melanosis coli throughout the colon. Diverticulosis in the sigmoid colon. COMPLICATIONS: None. INDICATIONS: The patient is a 69-year-old female who presents with iron deficiency anemia and is in need of diagnostic EGD and colonoscopy. The patient also has a new skin lesion on her chest that her oncologist would like removed. She also has a small skin lesion on her abdomen that is chronically infected, and she would like to have excised. The patient and I discussed the procedures, expected perioperative course, and risks. She verbalized understanding and wishes to proceed. PROCEDURE IN DETAIL: The patient was brought into the OR and placed on the OR table in supine position. A time-out was completed verifying the patient's name, age, date of , allergies, and procedure to be performed. General endotracheal anesthesia was induced. The chest and abdomen were prepped and draped in usual standard fashion. The abdominal skin lesion appeared to be an open pore that was chronically infected. This was less than 1 mm in size. I anesthetized the area with 0.5% Marcaine plain. A richard-shaped incision was made using a 15 blade around the skin lesion. Cautery was used to dissect to the level of subcutaneous fat. The skin was undermined and removed from the surrounding tissues. The specimen had no margins. It was placed on the back table and measured. It measured 7 mm x 3 mm x 4 mm in size. It was sent to pathology, labeled as abdominal skin lesion. I then turned my attention to the chest wall skin lesion. This was anesthetized with 0.5% Marcaine plain. An elliptical incision was made along the skin lines using a 15 blade. Cautery was used to dissect to the level of subcutaneous fat. I undermined the lesion taking care to take healthy-appearing fat with the skin lesion. It was placed on the back table and measured 1.5 x 1 x 1 cm in size. It was sent to pathology, labeled as chest wall skin lesion. Hemostasis was achieved using electrocautery in both wounds. The abdominal skin lesion was closed with interrupted 4-0 Monocryl sutures. The chest wall skin lesion was closed with interrupted 3-0 Vicryl sutures in the subcutaneous fat layer and a running 4-0 Monocryl stitch on the skin. Dermabond and sterile dressings were applied. We then began the endoscopy portion of the case. A well-lubricated endoscope was placed in the patient's mouth and advanced under direct visualization to the second portion of duodenum. This appeared normal and a photograph was taken. The scope was then fully withdrawn while examining the color, texture, anatomy, and integrity of the mucosa of the upper GI tract. The patient appeared to have some very mild duodenitis and gastritis within the antrum of the stomach, but there was no evidence of ulcers or any evidence of bleeding. Photographs of this were taken. A photograph was taken of the GE junction with the scope retroflexed within the stomach. The patient clearly had a paraesophageal hernia. The body of the stomach had hyperplastic appearing polyps. One of these was taken using cold biopsy forceps and sent to pathology, labeled as gastric polyp. Biopsies were taken of the gastric antrum, body, and fundus and sent for histologic review and H. pylori testing. The scope was then brought into the distal esophagus. This appeared somewhat tortuous, likely due to the paraesophageal hernia. The small amount of fundus that was in the chest was closely inspected. There was no evidence of Anshu ulcers or any bleeding. The distal esophagus at the Z-line appeared normal with no evidence of chronic inflammation or ulceration. Multiple pictures were taken of this. The remainder of the esophagus appeared normal and the scope was removed. A digital rectal exam was performed. This exam was within normal limits. A well-lubricated colonoscope was inserted in the rectum and advanced under direct visualization to the level of the cecum. The cecum was identified by both visual and anatomic landmarks. A photograph was taken of the cecal cap as well as with the scope retroflexed within the cecum. The scope was then fully withdrawn while examining the color, texture, anatomy, and integrity of the mucosa from the cecum to the anal canal. The colonic mucosa appeared to have melanosis coli. The patient had several small diverticula within the sigmoid colon. Otherwise, there were no other abnormalities seen. The scope was brought into the rectum and retroflexed to allow visualization of the anal canal opening. This appeared normal and a photograph was taken. The scope was then straightened out and fully withdrawn. Cecum to anus time was 7 minutes. The patient tolerated the procedure well and was transferred to the PACU in stable condition. ENDOSCOPIC DIAGNOSES: 1. Abdominal skin lesion. 2. Chest wall skin lesion. 3. Paraesophageal hernia. 4. Hyperplastic gastric polyps. 5. Melanosis coli. 6. Diverticulosis of the sigmoid colon. RECOMMENDATIONS: Follow up in clinic in 2 weeks. MARGI HERNÁNDEZ /[id number]
== END 2019-10-06 14:30 | disposition home or self-care (01) ==
LOC: MW.SDS 10:35
PROVIDERS: ATTEND Surgery
DX: L72.0 Epidermal cyst (principal); K29.80 Duodenitis without bleeding; K29.70 Gastritis, unspecified, without bleeding; K44.9 Diaphragmatic hernia without obstruction or gangrene; K57.30 Diverticulosis of large intestine without perforation or abscess without bleeding; K31.7 Polyp of stomach and duodenum; K63.89 Other specified diseases of intestine; J45.909 Unspecified asthma, uncomplicated; E78.00 Pure hypercholesterolemia, unspecified; M81.0 Age-related osteoporosis without current pathological fracture; K21.9 Gastro-esophageal reflux disease without esophagitis; D50.9 Iron deficiency anemia, unspecified; Z87.891 Personal history of nicotine dependence; Z79.899 Other long term (current) drug therapy
CPT/HCPCS: 11400; 11402; 12031; 43239; 45378; 88304; 88305; 88312; A9270; J0690; J2001; J2250; J2405; J2704; J3010; J3490; J7120; 00813

== ENCOUNTER 2020-01-21 01:24 | Emergency (ER) | payer MEDICARE, OTHER ==
--- NOTE | 2020-01-21 01:37 | EDM.PDOC ---
ED HPI GENERAL MEDICAL PROBLEM - General Chief Complaint: Respiratory Problem Stated Complaint: SOB Time Seen by Provider: 01/21/20 01:30 Source of Information: Reports: Patient History Limitations: Reports: No Limitations - History of Present Illness INITIAL COMMENTS - FREE TEXT/NARRATIVE: Patient is a 69-year-old female who presents today for shortness of breath and body aches. Patient states symptoms started a few days ago. Patient states she has diffuse body aches all over. Patient also reports a dry cough. Patient denies any fevers chest pain abdominal pain nausea vomiting. generalized Pain Score (Numeric/FACES): 5 - Related Data Allergies Allergy/AdvReac Type Severity Reaction Status Date / Time No Known Allergies Allergy Verified 01/21/20 01:34 Home Meds: Home Meds Albuterol Sulfate [Proair Hfa] 1 - 2 puff INH ASDIRECTED PRN 03/22/18 [History] Fluticasone/Salmeterol [Advair 100-50] 1 puff INH BID PRN 03/22/18 [History] Pantoprazole [ProTONIX] 40 mg PO DAILY 03/22/18 [History] Albuterol Sulfate 1 dose NEB ASDIRECTED PRN 09/30/19 [History] [place]/D3/Mag11/Zinc/Electrical Technician Instructor/Jam/Bor [Caltrate 600+D Plus Tablet] 2 tab PO DAILY 09/30/19 [History] Chlorhexidine Gluconate [Chlorhexidine Gluconate 0.12% Rinse] 1 dose SSPIT ASDIRECTED PRN 09/30/19 [History] Cholecalciferol (Vitamin D3) [Vitamin D3] 1,000 units PO DAILY 09/30/19 [History] Ferrous Sulfate [Iron] 1 tab PO DAILY 09/30/19 [History] Magnesium Oxide 2 tab PO BID 09/30/19 [History] Montelukast Sodium 10 mg PO DAILY PRN 09/30/19 [History] Olopatadine [Pataday 0.2% Ophth Soln] 1 drop EYEBOTH ASDIRECTED PRN 09/30/19 [History] Potassium Chloride 10 meq PO DAILY 09/30/19 [History] Tamoxifen Citrate 20 mg PO DAILY 09/30/19 [History] Albuterol/Ipratropium [Combivent Respimat] 1 inh IH Q4HR PRN 01/21/20 [History] Doxycycline [Doxycycline Monohydrate] 100 mg PO BID 01/21/20 [History] Past Medical History HEENT History: Reports: Impaired Vision, Other (See Below) Other HEENT History: wears glasses, top and bottom dentures Cardiovascular History: Reports: None Respiratory History: Reports: Asthma Gastrointestinal History: Reports: GERD Genitourinary History: Reports: None TRAPEZE ARTIST History: Musculoskeletal History: Reports: None Neurological History: Reports: None Psychiatric History: Reports: None Endocrine/Metabolic History: Reports: Osteopenia Hematologic History: Reports: Blood Transfusion(s) Immunologic History: Reports: None Oncologic (Cancer) History: Reports: Breast Dermatologic History: Reports: None - Infectious Disease History Infectious Disease History: Reports: Chicken Pox, Measles - Past Surgical History Head Surgeries/Procedures: Reports: None HEENT Surgical History: Reports: Cataract Surgery Other HEENT Surgeries/Procedures: hx eyelid bx Cardiovascular Surgical History: Reports: None Respiratory Surgical History: Reports: None GI Surgical History: Reports: Colonoscopy, EGD, Esther Fundoplication Female Surgical History: Reports: Breast Biopsy, Mastectomy Other Female Surgeries/Procedures: hx bird mastectomy Endocrine Surgical History: Reports: Other (See Below) Other Endocrine Surgeries/Procedures: excision of parotid tumor Neurological Surgical History: Reports: None Musculoskeletal Surgical History: Reports: None Oncologic Surgical History: Reports: Mastectomy Other Oncologic Surgeries/Procedures: bird mastectomy, estefany cath placement for chemo Dermatological Surgical History: Reports: None Social & Family History - Family History Family Medical History: No Pertinent Family History - Caffeine Use Caffeine Use: Reports: Coffee ED ROS GENERAL - Review of Systems Review Of Systems: Comprehensive ROS is negative, except as noted in HPI. Respiratory: Reports: Shortness of Breath, Cough Musculoskeletal: Reports: Muscle Pain ED EXAM, GENERAL - Physical Exam Exam: See Below Exam Limited By: No Limitations General Appearance: No Apparent Distress Eye Exam: Bilateral Eye: EOMI, PERRL Respiratory/Chest: No Respiratory Distress, Lungs Clear, Normal Breath Sounds Cardiovascular: Regular Rate, Rhythm GI/Abdominal: Normal Bowel Sounds, Soft, Non-Tender Neurological: Alert, Oriented, Normal Cognition Course - Vital Signs Last Recorded V/S: Last Vital Signs Temp 97.2 F 01/21/20 01:25 Pulse 101 H 01/21/20 02:58 Resp 19 01/21/20 02:58 BP 114/57 L 01/21/20 02:58 Pulse Ox 95 01/21/20 02:58 - Orders/Labs/Meds Labs: Laboratory Tests 01/21/20 01/21/20 Range/Units 01:30 01:30 WBC 8.35 (4.0-11.0) K/uL RBC 4.36 (4.30-5.90) M/uL Hgb 13.0 (12.0-16.0) g/dL Hct 39.9 (36.0-46.0) % MCV 91.5 (80.0-98.0) fL MCH 29.8 (27.0-32.0) pg MCHC 32.6 (31.0-37.0) g/dL RDW Std Deviation 50.8 (28.0-62.0) fl RDW Coeff of Jermaine 15 (11.0-15.0) % Plt Count 169 (150-400) K/uL MPV 10.10 (7.40-12.00) fL Neut % (Auto) 79.9 (48.0-80.0) % Lymph % (Auto) 11.3 L (16.0-40.0) % Cascade % (Auto) 8.7 (0.0-15.0) % Eos % (Auto) 0.0 (0.0-7.0) % Baso % (Auto) 0.1 (0.0-1.5) % Neut # (Auto) 6.7 H (1.4-5.7) K/uL Lymph # (Auto) 0.9 (0.6-2.4) K/uL Cascade # (Auto) 0.7 (0.0-0.8) K/uL Eos # (Auto) 0.0 (0.0-0.7) K/uL Baso # (Auto) 0.0 (0.0-0.1) K/uL Nucleated RBC % 0.0 /100WBC Nucleated RBCs # 0 K/uL Sodium 135 L (136-145) mmol/L Potassium 3.2 L (3.5-5.1) mmol/L Chloride 100 (98-107) mmol/L Carbon Dioxide 24.1 (21.0-32.0) mmol/L BUN 11 (7.0-18.0) mg/dL Creatinine 1.0 (0.6-1.0) mg/dL Est Cr Clr Drug Dosing TNP Estimated GFR (MDRD) 54.7 ml/min Glucose 139 H (74-106) mg/dL Calcium 8.6 (8.5-10.1) mg/dL Departure - Departure Time of Disposition: 02:40 Disposition: Home, Self-Care 01 Condition: Good Clinical Impression: COVID-19 - Discharge Information *PRESCRIPTION DRUG MONITORING PROGRAM REVIEWED*: Not Applicable *COPY OF PRESCRIPTION DRUG MONITORING REPORT IN PATIENT MOR: Not Applicable Instructions: COVID-19 Frequently Asked Questions Referrals: PCP,None [Primary Care Provider] - Forms: ED Department Discharge Additional Instructions: The following information is given to patients seen in the emergency department who are being discharged to home. This information is to outline your options for follow-up care. We provide all patients seen in our emergency department with a follow-up referral. The need for follow-up, as well as the timing and circumstances, are variable depending upon the specifics of your emergency department visit. If you don't have a primary care physician on staff, we will provide you with a referral. We always advise you to contact your personal physician following an emergency department visit to inform them of the circumstance of the visit and for follow-up with them and/or the need for any referrals to a consulting specialist. The emergency department will also refer you to a specialist when appropriate. This referral assures that you have the opportunity for follow-up care with a specialist. All of these measure are taken in an effort to provide you with optimal care, which includes your follow-up. Under all circumstances we always encourage you to contact your private physician who remains a resource for coordinating your care. When calling for follow-up care, please make the office aware that this follow-up is from your recent emergency room visit. If for any reason you are refused follow-up, please contact the Emergency Department at and asked to speak to the emergency department charge nurse. Please follow up with your primary care physician. If you do not have a primary care physician, see below: [facility] [address] [place] [id number] [facility] [address] [place] [id number] Follow-up with your primary care physician. You likely have COVID-19. At the moment you do not require any oxygen to maintain your oxygen saturation. If you feel if you cannot breathe your breathing is getting worse please return to the ED immediately. Continue to stay hydrated and get rest. Sepsis Event Note (ED) - Focused Exam Vital Signs: Vital Signs Temp Pulse Resp BP Pulse Ox 01/21/20 02:58 101 H 19 114/57 L 95 01/21/20 02:25 110 H 20 114/57 L 01/21/20 01:30 94 L 01/21/20 01:25 97.2 F 118 H 24 H 117/65 86 L - Assessment/Plan Plan: Patient is a 69-year-old female who presents today for shortness of breath and body aches. Patient is satting 95% on room air. Will obtain x-ray labs and reassess. States she has been tested for Covid results are still pending. Patient oxygen level is 95% on room air. Patient does not seem to be any distress. Patient was sleeping resting comfortably in the ED room as well. Patient x-ray does show opacities likely related to Covid. Due to patient respiratory status and lab work patient will be discharged home will be given strict return precautions. Patient made aware the she could decompensate but at this time she is not requiring any oxygen she does not need to be admitted to the hospital. Patient fully understands and will be discharged home.
[2020-01-21 01:52] LABS: BLOOD UREA NITROGEN,BUN 11 mg/dL (7.0-18.0); CARBON DIOXIDE,CO2 24.1 mmol/L (21.0-32.0); CHLORIDE,CL 100 mmol/L (98-107); GLUCOSE RANDOM 139 mg/dL (74-106); POTASSIUM,K 3.2 mmol/L (3.5-5.1); SODIUM,NA 135 mmol/L (136-145)
--- NOTE | 2020-01-21 02:20 | CR ---
Indication: Shortness of breath Technique: Chest 1 view Comparison: Non April 04, 2016 e Findings/Impression: Stable cardiomediastinal silhouette. Left-sided Port-A-Cath tip terminates at the level of the right atrium. Normal pulmonary vasculature. New scattered patchy opacities in both lungs concerning for infection, including COVID-19. No pneumothorax or effusion. Surgical clips in the bilateral axilla. Dictated by Ashley To MD @ Jan 21 2020 2:17AM Signed by Dr. Ashley To @ Jan 21 2020 2:18AM
== END 2020-01-21 02:55 | disposition home or self-care (01) ==
LOC: MW.ED 01:24
DX: U07.1 COVID-19 (principal); J45.909 Unspecified asthma, uncomplicated; K21.9 Gastro-esophageal reflux disease without esophagitis; Z79.899 Other long term (current) drug therapy
CPT/HCPCS: 36415; 71045; 71045-26; 80048; 85025; 99282; 99285-25

== ENCOUNTER 2020-09-22 13:33 | Emergency (ER) | payer MEDICARE, OTHER ==
--- NOTE | 2020-09-22 14:26 | EDM.PDOC ---
ED HPI GENERAL MEDICAL PROBLEM - General Chief Complaint: General Stated Complaint: DIZZINESS CLAMMY TIRED Time Seen by Provider: 09/22/20 14:23 - History of Present Illness INITIAL COMMENTS - FREE TEXT/NARRATIVE: History of present illness: [] The patient was dizzy when she woke up yesterday morning he got a little better during the day she was dizzy when she woke up today. He got a little better erythema develop. The patient has disequilibrium and feels like she has trouble walking and may fall pressure. She feels quite dizzy and finds it hard to describe the dizziness. She does not see rotation like with rotational vertigo. She is diaphoretic when she is dizzy. She has nausea as well. The patient is a non-smoker whose mother and father both had heart attacks. Review of systems: As per history of present illness and below otherwise all systems reviewed and negative. Past medical history: As per history of present illness and as reviewed below otherwise noncontributory. Surgical history: As per history of present illness and as reviewed below otherwise noncontributory. Social history: No reported history of drug or alcohol abuse. Family history: As per history of present illness and as reviewed below otherwise noncontributory. Physical exam: Constitutional - well developed, well-nourished and in no acute distress HEENT - normocephalic, no evidence of trauma - external nose and mouth normal - no mass in neck and no JVD - mucosae moist EYES - full EOM, PERRL, no icterus - no evidence of inflammation, injection, or drainage Respiratory - no respiratory distress, equal bilateral expansion, lungs clear to auscultation and no abnormal lung sounds Cardiovascular - Regular Rhythm with S1 and S2 appreciated and no murmur, gallop or rub. GI - abdomen soft without distension or organomegaly - normal bowel sounds - no guard or rebound Musculoskeletal no gross deformity of long bones or joints - no tenderness, swelling or edema Neurologic -my customary neurologic exam is negative alert and oriented times four - CN II-XII grossly intact - motor sensory and coordination symmetrically normal Psychiatric - appropriate mood and affect with normal thought content Hematologic - No petechiae or purpura - mucosa appropriate color and sclera not pale - normal nail bed color and refill Integument - no rash or evidence of trauma - normal turgor Diagnostics: [] Therapeutics: [] Impression: [] Plan: [] Definitive disposition and diagnosis as appropriate pending reevaluation and review of above. - Related Data Allergies Allergy/AdvReac Type Severity Reaction Status Date / Time No Known Allergies Allergy Verified 01/21/20 01:34 Home Meds: Home Meds Albuterol Sulfate [Proair Hfa] 1 - 2 puff INH ASDIRECTED PRN 03/22/18 [History] Fluticasone/Salmeterol [Advair 100-50] 1 puff INH BID PRN 03/22/18 [History] Pantoprazole [ProTONIX] 40 mg PO DAILY 03/22/18 [History] Albuterol Sulfate 1 dose NEB ASDIRECTED PRN 09/30/19 [History] [place]/D3/Mag11/Zinc/Back Wedger/Jam/Bor [Caltrate 600+D Plus Tablet] 2 tab PO DAILY 09/30/19 [History] Chlorhexidine Gluconate [Chlorhexidine Gluconate 0.12% Rinse] 1 dose SSPIT ASDIRECTED PRN 09/30/19 [History] Cholecalciferol (Vitamin D3) [Vitamin D3] 1,000 units PO DAILY 09/30/19 [History] Ferrous Sulfate [Iron] 1 tab PO DAILY 09/30/19 [History] Magnesium Oxide 2 tab PO BID 09/30/19 [History] Montelukast Sodium 10 mg PO DAILY PRN 09/30/19 [History] Olopatadine [Pataday 0.2% Ophth Soln] 1 drop EYEBOTH ASDIRECTED PRN 09/30/19 [History] Potassium Chloride 10 meq PO DAILY 09/30/19 [History] Tamoxifen Citrate 20 mg PO DAILY 09/30/19 [History] Albuterol/Ipratropium [Combivent Respimat] 1 inh IH Q4HR PRN 01/21/20 [History] Doxycycline [Doxycycline Monohydrate] 100 mg PO BID 01/21/20 [History] Meclizine [Antivert] 25 mg PO TID PRN #20 tab 09/22/20 [Rx] Past Medical History HEENT History: Reports: Impaired Vision, Other (See Below) Other HEENT History: wears glasses, top and bottom dentures Cardiovascular History: Reports: None Respiratory History: Reports: Asthma Gastrointestinal History: Reports: GERD Genitourinary History: Reports: None [employer] History: Musculoskeletal History: Reports: None Neurological History: Reports: None Psychiatric History: Reports: None Endocrine/Metabolic History: Reports: Osteopenia Insulin Pump Model and Auto Damage Estimator: None Hematologic History: Reports: Blood Transfusion(s) Immunologic History: Reports: None Oncologic (Cancer) History: Reports: Breast Dermatologic History: Reports: None - Infectious Disease History Infectious Disease History: Reports: Chicken Pox, Measles - Past Surgical History Head Surgeries/Procedures: Reports: None HEENT Surgical History: Reports: Cataract Surgery Other HEENT Surgeries/Procedures: hx eyelid bx Cardiovascular Surgical History: Reports: None Respiratory Surgical History: Reports: None GI Surgical History: Reports: Colonoscopy, EGD, Esther Fundoplication Female Surgical History: Reports: Breast Biopsy, Mastectomy Other Female Surgeries/Procedures: hx bird mastectomy Endocrine Surgical History: Reports: Other (See Below) Other Endocrine Surgeries/Procedures: excision of parotid tumor Neurological Surgical History: Reports: None Musculoskeletal Surgical History: Reports: None Oncologic Surgical History: Reports: Mastectomy Other Oncologic Surgeries/Procedures: bird mastectomy, estefany cath placement for chemo Dermatological Surgical History: Reports: None Social & Family History - Family History Family Medical History: No Pertinent Family History - Caffeine Use Caffeine Use: Reports: Coffee ED ROS GENERAL - Review of Systems Review Of Systems: Comprehensive ROS is negative, except as noted in HPI. ED EXAM, GENERAL - Physical Exam Exam: See Below Course - Vital Signs Text/Narrative:: The patient's ambulatory feels better and CTs failed to reveal a stroke. Last Recorded V/S: Last Vital Signs Temp 36.4 C 09/22/20 14:39 Pulse 74 09/22/20 16:09 Resp 16 09/22/20 16:09 BP 119/69 09/22/20 16:09 Pulse Ox 99 09/22/20 16:09 - Orders/Labs/Meds Orders: Active Orders 24 hr Category Date Time Status Sodium Chloride 0.9% [Saline Flush] Med 09/22/20 14:40 Active 10 ml FLUSH ASDIRECTED PRN Sodium Chloride 0.9% [Saline Flush] Med 09/22/20 14:40 Active 2.5 ml FLUSH ASDIRECTED PRN Saline Lock Insert [OM.PC] Stat Oth 09/22/20 14:40 Ordered Medication Orders Sodium Chloride (Sodium Chloride 0.9% 10 Ml Syringe) 10 ml FLUSH ASDIRECTED PRN PRN Reason: Keep Vein Open Last Admin: 09/22/20 15:30 Dose: 10 ml Documented by: DAVY Sodium Chloride (Sodium Chloride 0.9% 2.5 Ml Syringe) 2.5 ml FLUSH ASDIRECTED PRN PRN Reason: Keep Vein Open Last Admin: 09/22/20 15:30 Dose: 2.5 ml Documented by: DAVY Labs: Laboratory Tests 09/22/20 09/22/20 09/22/20 Range/Units 15:18 15:18 15:46 WBC 7.17 (4.0-11.0) K/uL RBC 4.25 L (4.30-5.90) M/uL Hgb 13.0 (12.0-16.0) g/dL Hct 39.5 (36.0-46.0) % MCV 92.9 (80.0-98.0) fL MCH 30.6 (27.0-32.0) pg MCHC 32.9 (31.0-37.0) g/dL RDW Std Deviation 47.4 (28.0-62.0) fl RDW Coeff of Jermaine 14 (11.0-15.0) % Plt Count 187 (150-400) K/uL MPV 10.90 (7.40-12.00) fL Neut % (Auto) 63.6 (48.0-80.0) % Lymph % (Auto) 25.1 (16.0-40.0) % [place] % (Auto) 8.8 (0.0-15.0) % Eos % (Auto) 2.2 (0.0-7.0) % Baso % (Auto) 0.3 (0.0-1.5) % Neut # (Auto) 4.6 (1.4-5.7) K/uL Lymph # (Auto) 1.8 (0.6-2.4) K/uL [place] # (Auto) 0.6 (0.0-0.8) K/uL Eos # (Auto) 0.2 (0.0-0.7) K/uL Baso # (Auto) 0.0 (0.0-0.1) K/uL Nucleated RBC % 0.0 /100WBC Nucleated RBCs # 0 K/uL Sodium 141 (136-145) mmol/L Potassium 3.7 (3.5-5.1) mmol/L Chloride 106 (98-107) mmol/L Carbon Dioxide 26.5 (21.0-32.0) mmol/L BUN 19 H (7.0-18.0) mg/dL Creatinine 0.8 (0.6-1.0) mg/dL Est Cr Clr Drug Dosing 54.89 mL/min Estimated GFR (MDRD) > 60.0 ml/min Glucose 85 (74-106) mg/dL Calcium 8.5 (8.5-10.1) mg/dL Total Bilirubin 0.3 (0.2-1.0) mg/dL AST 22 (15-37) IU/L ALT 25 (14-63) IU/L Alkaline Phosphatase 47 (46-116) U/L Total Protein 6.6 (6.4-8.2) g/dL Albumin 3.5 (3.4-5.0) g/dL Globulin 3.1 (2.6-4.0) g/dL Albumin/Globulin Ratio 1.1 (0.9-1.6) Urine Color YELLOW Urine Appearance CLEAR Urine pH 6.0 (5.0-8.0) Ur Specific [place] 1.015 (1.001-1.035) Urine Protein NEGATIVE (NEGATIVE) mg/dL Urine Glucose (UA) NEGATIVE (NEGATIVE) mg/dL Urine Ketones NEGATIVE (NEGATIVE) mg/dL Urine Occult Blood NEGATIVE (NEGATIVE) Urine Nitrite NEGATIVE (NEGATIVE) Urine Bilirubin NEGATIVE (NEGATIVE) Urine Urobilinogen 0.2 (<2.0) EU/dL Ur Leukocyte Esterase NEGATIVE (NEGATIVE) Meds: Medications Generic Name Dose Route Start Last Admin Trade Name Freq PRN Reason Stop Dose Admin Sodium Chloride 10 ml 09/22/20 14:40 09/22/20 15:30 Sodium Chloride 0.9% 10 Ml Syringe FLUSH 10 ml ASDIRECTED PRN Administration Keep Vein Open Sodium Chloride 2.5 ml 09/22/20 14:40 09/22/20 15:30 Sodium Chloride 0.9% 2.5 Ml Syringe FLUSH 2.5 ml ASDIRECTED PRN Administration Keep Vein Open Discontinued Medications Generic Name Dose Route Start Last Admin Trade Name Freq PRN Reason Stop Dose Admin Meclizine HCl 25 mg 09/22/20 14:40 09/22/20 15:30 Meclizine 25 Mg Tab PO 09/22/20 14:41 25 mg ONETIME ONE Administration Ondansetron HCl 4 mg 09/22/20 14:40 09/22/20 15:30 Ondansetron 4 Mg/2 Ml Sdv IVPUSH 09/22/20 14:41 4 mg ONETIME ONE Administration Departure - Departure Time of Disposition: 17:45 Disposition: Home, Self-Care 01 Condition: Good Clinical Impression: Vertigo - Discharge Information Instructions: Vertigo, [id number] Referrals: Aissatou Colón NP [Primary Care Provider] - Forms: ED Department Discharge Additional Instructions: [facility] [address] [place] [id number] [facility] [address] [place] [id number] The following information is given to patients seen in the emergency department who are being discharged to home. This information is to outline your options for follow-up care. We provide all patients seen in our emergency department with a follow-up referral. The need for follow-up, as well as the timing and circumstances, are variable depending upon the specifics of your emergency department visit. If you don't have a primary care physician on staff, we will provide you with a referral. We always advise you to contact your personal physician following an emergency department visit to inform them of the circumstance of the visit and for follow-up with them and/or the need for any referrals to a consulting specialist. The emergency department will also refer you to a specialist when appropriate. This referral assures that you have the opportunity for follow-up care with a specialist. All of these measure are taken in an effort to provide you with optimal care, which includes your follow-up. Under all circumstances we always encourage you to contact your private physician who remains a resource for coordinating your care. When calling for follow-up care, please make the office aware that this follow-up is from your recent emergency room visit. If for any reason you are refused follow-up, please contact the [facility] Emergency Department at and asked to speak to the emergency department charge nurse. Sepsis Event Note (ED) - Focused Exam Vital Signs: Vital Signs Temp Pulse Resp BP Pulse Ox 09/22/20 16:09 74 16 119/69 99 09/22/20 14:39 36.4 C 82 17 126/73 97 - My Orders Last 24 Hours: My Active Orders 09/22/20 14:40 Sodium Chloride 0.9% [Saline Flush] 10 ml FLUSH ASDIRECTED PRN Sodium Chloride 0.9% [Saline Flush] 2.5 ml FLUSH ASDIRECTED PRN Saline Lock Insert [OM.PC] Stat - Assessment/Plan Last 24 Hours: My Active Orders 09/22/20 14:40 Sodium Chloride 0.9% [Saline Flush] 10 ml FLUSH ASDIRECTED PRN Sodium Chloride 0.9% [Saline Flush] 2.5 ml FLUSH ASDIRECTED PRN Saline Lock Insert [OM.PC] Stat
[2020-09-22] MEDS ORDERED: Ondansetron 4 MG/2 ML SDV IVPUSH ONE (14:40)
[2020-09-22] MEDS ORDERED: Sodium Chloride 0.9% 10 ML Syringe FLUSH PRN (14:40)
[2020-09-22] MEDS ORDERED: Meclizine 25 MG Tab PO ONE (14:40)
[2020-09-22] MEDS ORDERED: Sodium Chloride 0.9% 2.5 ML Syringe FLUSH PRN (14:40)
[2020-09-22 15:53] LABS: BLOOD UREA NITROGEN,BUN 19 mg/dL (7.0-18.0); CARBON DIOXIDE,CO2 26.5 mmol/L (21.0-32.0); CHLORIDE,CL 106 mmol/L (98-107); GLUCOSE RANDOM 85 mg/dL (74-106); POTASSIUM,K 3.7 mmol/L (3.5-5.1); SODIUM,NA 141 mmol/L (136-145)
--- NOTE | 2020-09-22 17:26 | CT ---
DATE: 09/22/2020. CLINICAL HISTORY: Patient with dizziness. TECHNIQUE: Standard helical CT image acquisition of the brain following by standard helical CT image acquisition through the head and neck after intravenous contrast bolus enhancement. Multiplanar reconstructed images performed on a separate workstation. COMPARISON: None available. FINDINGS: CT HEAD: There is no intracranial hemorrhage. No extra-axial collection, mass effect, or midline shift. Patchy hypoattenuation within the white matter of both hemispheres likely reflects sequela of chronic small vessel ischemia. Intracranial atherosclerotic disease. Ventricles are normal in size and morphology for patient age. The calvarium is unremarkable. Metallic artifact overlies the left globe, perhaps an eyelid weight. Small presumed mucous retention cyst within the left maxillary sinus. The mastoid air cells are unremarkable. The soft tissues are unremarkable. CT ANGIOGRAM HEAD AND NECK: The origins of the great vessels from the aortic arch are patent. The origins of the right and left vertebral arteries are patent. The common carotid arteries are patent. No significant stenoses at the origins of the proximal internal carotid arteries by NASCET criteria. The more distal cervical segments of the internal carotid arteries are patent. The cervical segments of the vertebral arteries are patent. No intracranial proximal large vessel occlusion or flow-limiting luminal stenosis. The visualized lung apices are unremarkable. Left-sided approach CVC in place. 1.5 cm nodule within the right lobe of the thyroid gland, previously assessed on thyroid ultrasound in 2013. There are degenerative changes in the cervical spine. IMPRESSION: 1. No CT evidence of acute intracranial abnormality. 2. Findings most consistent with sequela of chronic small vessel ischemia. 3. No intracranial proximal large vessel occlusion or flow-limiting luminal stenosis. 4. Patent cervical arterial vasculature with no hemodynamically significant luminal stenosis. Please note that all CT scans at this facility use dose modulation, iterative reconstruction, and/or weight-based dosing when appropriate to reduce radiation dose to as low as reasonably achievable. Dictated by Billy Lopez MD @ 09/22/2020 5:25:[address] Billy Lopez @ Sep 22 2020 5:25PM
== END 2020-09-22 18:06 | disposition home or self-care (01) ==
LOC: MW.ED 13:33
DX: R42 Dizziness and giddiness (principal); J45.909 Unspecified asthma, uncomplicated; K21.9 Gastro-esophageal reflux disease without esophagitis; Z79.899 Other long term (current) drug therapy
CPT/HCPCS: 36415; 70450; 70496; 70498; 80053; 81003; 85025; 96374; 99284; A9270; J1642; J2405; 77080; 77080-26; 99283

== ENCOUNTER 2023-07-14 14:15 | Emergency (ER) | payer MEDICARE, OTHER ==
[2023-07-14] MEDS: Clindamycin HCl 150 MG Cap PO STA (15:50)
[2023-07-14] MEDS: traMADol 50 MG Tab PO ONE (15:50)
== END 2023-07-14 15:53 | disposition home or self-care (01) ==
LOC: MW.ED 14:15
DX: L03.012 Cellulitis of left finger (principal); K21.9 Gastro-esophageal reflux disease without esophagitis; J45.909 Unspecified asthma, uncomplicated; Z75.8 Other problems related to medical facilities and other health care; Z79.51 Long term (current) use of inhaled steroids; Z79.899 Other long term (current) drug therapy; Z79.84 Long term (current) use of oral hypoglycemic drugs
CPT/HCPCS: 99283; A9270

== ENCOUNTER 2023-09-10 09:28 | Emergency (ER) | payer MEDICARE, OTHER ==
[2023-09-10] MEDS: Famotidine 20 MG/2 ML SDV IVPUSH ONE (10:09)
[2023-09-10] MEDS: Ondansetron 4 MG/2 ML SDV IVPUSH ONE (10:09)
[2023-09-10] MEDS: Albuterol/Ipratropium 3.0-0.5 MG/3 ML Neb Soln NEB ONE (10:09)
[2023-09-10 10:21] LABS: BASOPHILS ABSOLUTE AUTO 0.03 K/uL (0.00-0.20); BASOPHILS PERCENT AUTO 0.3 % (0.0-1.0); EOSINOPHILS ABSOLUTE AUTO 0.05 K/uL (0.00-0.45); EOSINOPHILS PERCENT AUTO 0.6 % (0.0-6.0); HEMATOCRIT 38.5 % (37.0-47.0); HEMOGLOBIN 12.4 g/dL (12.0-16.0); IMMATURE GRAN ABSOLUTE AUTO 0.02 K/uL (0.00-0.05); IMMATURE GRAN PERCENT AUTO 0.2 % (0.0-0.4); LYMPHOCYTES ABSOLUTE AUTO 1.35 K/uL (1.00-4.80); LYMPHOCYTES PERCENT AUTO 15.6 % (24.0-44.0); MEAN CORPUSCULAR HGB CONC 32.2 g/dL (32.0-36.0); MEAN CORPUSCULAR VOLUME 93.2 fL (83.0-99.0); MEAN PLATELET VOLUME 10.1 fL (9.4-12.3); MONOCYTES ABSOLUTE AUTO 0.68 K/uL (0.00-0.80); MONOCYTES PERCENT AUTO 7.9 % (0.0-8.0); NEUTROPHILS ABSOLUTE AUTO 6.51 K/uL (1.80-7.70); NEUTROPHILS PERCENT AUTO 75.4 % (41.0-71.0); PLATELET COUNT,PLT 279 K/uL (150-400); RED BLOOD CELL COUNT 4.13 M/uL (4.10-5.30); WHITE BLOOD CELL COUNT,WBC 8.64 K/uL (3.9-11.3)
[2023-09-10 10:28] LABS: A/G RATIO 1.1 (0.9-1.6); ALBUMIN 3.4 g/dL (3.4-5.0); BILIRUBIN TOTAL 0.3 mg/dL (0.2-1.0); CALCIUM 8.7 mg/dL (8.5-10.1); CARBON DIOXIDE,CO2 24.5 mmol/L (21.0-32.0); EST CRCL DRUG DOSING (CG) 42.62 mL/min; POTASSIUM,K 3.9 mmol/L (3.5-5.1); PROTEIN TOTAL,TP 6.5 g/dL (6.4-8.2)
[2023-09-10] MEDS: Sodium Chloride 0.9% 10 ML Syringe FLUSH PRN (10:31)
[2023-09-10] MEDS: Sodium Chloride 0.9% 2.5 ML Syringe FLUSH PRN (10:31)
[2023-09-10] MEDS: Dexamethasone 4 MG Tab PO ONE (11:33)
== END 2023-09-10 11:34 | disposition home or self-care (01) ==
LOC: MW.ED 09:28
DX: J44.1 Chronic obstructive pulmonary disease with (acute) exacerbation (principal); J45.909 Unspecified asthma, uncomplicated; K21.9 Gastro-esophageal reflux disease without esophagitis; Z79.51 Long term (current) use of inhaled steroids; Z79.899 Other long term (current) drug therapy
CPT/HCPCS: 36415; 71045; 80053; 83690; 84484; 85025; 93005; 96374; 96375; 99285; J2405; J3490; J8540; J7620-GY

== ENCOUNTER 2023-11-26 09:17 | Day surgery (SDC) | payer MEDICARE, OTHER ==
[~2023-11-26 09:17] MED LIST changes: +Albuterol 0.083% 2.5 MG/3 ML Neb Soln NEB PRN; +HYDROmorphone 1 MG/ML Syringe IVPUSH PRN; -Lactated Ringers 1,000 ML IV SCH; +Metoclopramide 10 MG/2 ML SDV IVPUSH PRN; +Morphine 2 MG/ML SYRINGE IVPUSH PRN; +Naloxone 0.4 MG/ML SDV IVPUSH PRN; +Ondansetron 4 MG/2 ML SDV IVPUSH PRN; +Phenylephrine HCl In 0.9% NaCl 1 MG/10 ML Syringe IVPUSH PRN; -Propofol 200 MG/20 ML SDV ONE; -Sodium Chloride 0.9% 10 ML SDV IV PRN; +Sodium Chloride 0.9% 20 ML SDV IV PRN; +droPERidol 5 MG/2 ML SDV IVPUSH PRN; +fentaNYL 50 MCG/ML SDV IVPUSH PRN
[2023-11-26] MEDS ORDERED: Bupivacaine 0.5% 10 ML SDV ONE (09:52)
[2023-11-26] MEDS ORDERED: Lidocaine 1% 20 ML MDV ONE (09:52)
[2023-11-26] MEDS: Lactated Ringers 1,000 ML IV SCH (10:57)
[2023-11-26] MEDS ORDERED: fentaNYL 100 MCG/2 ML SDV ONE (11:19)
[2023-11-26] MEDS ORDERED: Propofol 200 MG/20 ML SDV ONE (11:19)
[2023-11-26] MEDS ORDERED: Dexamethasone 4 MG/ML 5 ML MDV ONE (11:40)
[2023-11-26] MEDS ORDERED: Ondansetron 4 MG/2 ML SDV ONE (11:40)
== END 2023-11-26 13:23 | disposition home or self-care (01) ==
LOC: MW.SDS 09:17
PROVIDERS: ATTEND Surgery
DX: Z45.2 Encounter for adjustment and management of vascular access device (principal); L91.8 Other hypertrophic disorders of the skin; K21.9 Gastro-esophageal reflux disease without esophagitis; J45.909 Unspecified asthma, uncomplicated; E66.9 Obesity, unspecified; E11.9 Type 2 diabetes mellitus without complications; E78.00 Pure hypercholesterolemia, unspecified; Z79.899 Other long term (current) drug therapy; Z79.84 Long term (current) use of oral hypoglycemic drugs; Z68.32 Body mass index [BMI] 32.0-32.9, adult; Z87.891 Personal history of nicotine dependence
CPT/HCPCS: 11200; 36590; J0665; J1100; J2405; J2704; J3010; J7120; 00300; 64488; J3490